=== PATIENT | male | born 1995 ===

== ENCOUNTER 2017-06-03 23:18 | Emergency (ER) | payer SELFPAY ==
[2017-06-04 00:09] VITALS: BMI 19.3
[2017-06-04 00:19] VITALS: BP 121/86; PULSE 71; RESP 16; TEMP 98.6; O2SAT 99
--- NOTE | 2017-06-04 01:05 | ED PDOC ---
Arrival/HPI - General Chief Complaint: ENT Problem Time Seen by Provider: 06/04/17 00:50 Historian: Patient - History of Present Illness Narrative History of Present Illness (Text): 06/04/17 00:45 21 y/o male, no significant pmh, nkda, c/o lt ear pain x 3 days with no fall or trauma. Aching pain, aggravated by pulling the left ear, no change in hearing, no fever or chills, no chest pain or shortness of breath, no headache, no palpitation, no other medical or psychological complaints. Past Medical History - Provider Review Nursing Documentation Reviewed: Yes - Psychiatric Hx Substance Use: No - Anesthesia Hx Anesthesia: No Family/Social History - Physician Review Nursing Documentation Reviewed: Yes Family/Social History: Unknown Family HX Smoking Status: Never Smoked Hx Alcohol Use: No Hx Substance Use: No Allergies/Home Meds Allergies/Adverse Reactions: Allergies No Known Allergies Allergy (Verified 06/04/17 00:09) Review of Systems - Review of Systems Constitutional: absent: Fatigue, Fevers Eyes: absent: Vision Changes ENT: Other (lt. ear pain). absent: Hearing Changes Respiratory: absent: SOB, Cough Cardiovascular: absent: Chest Pain, Palpitations Gastrointestinal: absent: Abdominal Pain, Nausea, Vomiting Musculoskeletal: absent: Arthralgias, Back Pain, Myalgias Skin: absent: Rash, Pruritis, Skin Lesions Physical Exam Vital Signs Reviewed: Yes Vital Signs Temp Pulse Resp BP Pulse Ox 06/04/17 00:18 98.6 F 71 16 121/86 99 Temperature: Afebrile Blood Pressure: Normal Pulse: Regular Respiratory Rate: Normal Appearance: Positive for: Well-Appearing, Non-Toxic Pain Distress: Moderate Mental Status: Positive for: Alert and Oriented X 3 - Systems Exam Head: Present: Atraumatic, Normocephalic Pupils: Present: PERRL Extroacular Muscles: Present: EOMI Conjunctiva: Present: Normal Ears: Present: Other (Ears: bilateral TMs ernestine color and intact, lt. auditory canal erythematous, rt. auditory canal non-erythematous, no mastoid tenderness. ) Mouth: Present: Moist Mucous Membranes Neck: Present: Normal Range of Motion Respiratory/Chest: Present: Clear to Auscultation, Good Air Exchange. No: Respiratory Distress, Accessory Muscle Use Cardiovascular: Present: Regular Rate and Rhythm, Normal S1, S2. No: Murmurs Abdomen: Present: Normal Bowel Sounds. No: Tenderness, Distention, Peritoneal Signs Back: Present: Normal Inspection Upper Extremity: Present: Normal Inspection. No: Cyanosis, Edema Lower Extremity: Present: Normal Inspection. No: Edema Neurological: Present: GCS=15, CN II-XII Intact, Speech Normal Skin: Present: Warm, Dry, Normal Color. No: Rashes Psychiatric: Present: Alert, Oriented x 3, Normal Insight, Normal Concentration Medical Decision Making ED Course and Treatment: 06/04/17 01:04 -toradol IM -Discharge home with cortisporin otic, motrin, keep the left ear dry and clean, avoid using earphone or headphone for 7 days, follow up with your own pmd and ENT within 2 days, return to the ER for any new or worsening signs or symptoms. 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 Disposition/Present on Arrival - Present on Arrival Any Indicators Present on Arrival: No History of DVT/PE: No History of Uncontrolled Diabetes: No Urinary Catheter: No History of Decub. Ulcer: No History Surgical Site Infection Following: None - Disposition Have Diagnosis and Disposition been Completed?: Yes Diagnosis: Otitis externa Disposition: HOME/ ROUTINE Disposition Time: 01:05 Patient Plan: Discharge Condition: GOOD Additional Instructions: -Discharge home with cortisporin otic, motrin, keep the left ear dry and clean, avoid using earphone or headphone for 7 days, follow up with your own pmd and ENT within 2 days, return to the ER for any new or worsening signs or symptoms. Prescriptions: Ibuprofen [Motrin Tab] 800 mg PO TID PRN #21 tab PRN Reason: Other Neomycin/Polymyxin/Hydrocortis [Cortisporin Otic Susp] 4 drop OT TID #1 bottle Referrals: Yovani Lyons DO [Staff Provider] - Follow up with primary Forms: WORK NOTE
== END 2017-06-04 01:28 | disposition home or self-care (01) ==
LOC: ED 23:18
DX: H60.92 Unspecified otitis externa, left ear (principal)
CPT/HCPCS: 96372; 99283; J1885

== ENCOUNTER 2017-08-14 16:16 | Observation (INO) | payer SELFPAY ==
--- NOTE | 2017-08-14 16:19 | ED PDOC ---
"Arrival/HPI <Shahram Kapadia - Last Filed: 08/14/17 20:17> - General Historian: Patient <Luis Cordero - Last Filed: 08/14/17 20:56> - General Time Seen by Provider: 08/14/17 16:18 - History of Present Illness Narrative History of Present Illness (Text): 08/14/17 16:19 21 y/o male, pmh including otitis externa, nkda, c/o abdominal and flank pain x 3 days. Sharp pain, located on the bilateral flank regions, radiating to the anterior abdominal pain, admits nausea and mild vomiting, no rash, no diarrhea, no fever or chills, no coughing, no headache or night sweat, no chest pain or shortness of breath, no other medical or psychological complaints. (Luis Cordero) Past Medical History - Provider Review Nursing Documentation Reviewed: Yes - Psychiatric Hx Substance Use: No - Anesthesia Hx Anesthesia: No <Luis Cordero - Last Filed: 08/14/17 20:56> Family/Social History - Physician Review Nursing Documentation Reviewed: Yes Family/Social History: Unknown Family HX Smoking Status: Never Smoked Hx Alcohol Use: No Hx Substance Use: No <Luis Cordero - Last Filed: 08/14/17 20:56> Allergies/Home Meds <Shahram Kapadia - Last Filed: 08/14/17 20:17> <Luis Cordero - Last Filed: 08/14/17 20:56> Allergies/Adverse Reactions: Allergies No Known Allergies Allergy (Verified 08/14/17 16:42) Home Medications: Home Meds Medication Instructions Recorded Confirmed No Known Home Med 08/14/17 08/14/17 Review of Systems - Review of Systems Constitutional: absent: Fatigue, Fevers Eyes: absent: Vision Changes ENT: absent: Hearing Changes Respiratory: absent: SOB, Cough Cardiovascular: absent: Syncope Gastrointestinal: Abdominal Pain, Nausea, Vomiting Musculoskeletal: Back Pain. absent: Arthralgias, Neck Pain Skin: absent: Rash, Pruritis Neurological: absent: Headache, Dizziness <Luis Cordero - Last Filed: 08/14/17 20:56> Physical Exam Vital Signs Reviewed: Yes Temperature: Afebrile Blood Pressure: Normal Pulse: Regular Respiratory Rate: Normal Appearance: Positive for: Well-Appearing, Non-Toxic, Comfortable Pain Distress: Moderate Mental Status: Positive for: Alert and Oriented X 3 - Systems Exam Head: Present: Atraumatic, Normocephalic Pupils: Present: PERRL Extroacular Muscles: Present: EOMI Conjunctiva: Present: Normal Ears: Present: NORMAL TM, Normal Canal. No: Erythema Mouth: Present: Moist Mucous Membranes Neck: Present: Normal Range of Motion Respiratory/Chest: Present: Clear to Auscultation, Good Air Exchange. No: Respiratory Distress, Accessory Muscle Use Cardiovascular: Present: Regular Rate and Rhythm, Normal S1, S2. No: Murmurs Abdomen: Present: Tenderness (mild RLQ and generalized.), Normal Bowel Sounds. No: Distention, Peritoneal Signs, Rebound, Guarding Back: Present: Normal Inspection, CVA Tenderness (bilateral). No: Midline Tenderness (thoracic to lumbarsacral), Paraspinal Tenderness (thoracic to lumbarsacral), Pain with Leg Raise Upper Extremity: Present: Normal Inspection. No: Cyanosis, Edema Lower Extremity: Present: Normal Inspection. No: Edema Neurological: Present: GCS=15, Speech Normal, Motor Func Grossly Intact, Gait Normal, Memory Normal Skin: Present: Warm, Dry, Normal Color. No: Rashes Psychiatric: Present: Alert, Oriented x 3, Normal Insight, Normal Concentration <Luis Cordero - Last Filed: 08/14/17 20:56> Vital Signs Temp Pulse Resp BP Pulse Ox 08/14/17 20:49 71 18 120/79 100 08/14/17 19:00 75 18 118/75 99 08/14/17 17:16 99.2 F 08/14/17 16:30 99.7 F H 78 20 115/71 98 Medical Decision Making <Shahram Kapadia - Last Filed: 08/14/17 20:17> - Lab Interpretations I have reviewed the lab results: Yes Interpretation: No clinic. lab abnormalty - RAD Interpretation Cellular Phone Repairer: Radiologist <Luis Cordero - Last Filed: 08/14/17 20:56> ED Course and Treatment: 08/14/17 16:51 -labs/ua -CT abdomen and pelvis with IV contrast -IVF/toradol/zofran -observe and reassess 08/14/17 20:03 -Labs are non-significant -UA show no UTI with microscopic with no hematuria -CT Abdomen show: 1. Mild hepatomegaly. 2. Mild nonspecific right perinephric stranding is visualized. 3. The appendix is gas-filled and borderline distended measuring 0.7 cm in diameter. There is no acute periappendiceal stranding. Clinical correlation is recommended. 4. There is slight anterior wedging of the T10-L1 vertebral bodies, suggestive of compression deformities. The acuity of these findings is indeterminate. Clinical correlation is recommended. 5. Incidental/non-acute findings are described above. -Hospitalist/General surgeon paged. -Will admit the patient over night for observation for possible appendicitis since the CT reading is inconclusive. 08/14/17 20:17 -I spoke to the certified medical technician assistant DR. Cantrell and the night hospitalist Dr. Nghia Parham, discussed about the case and they agreed to continue the care for the patient. -I spoke to general surgeon, Dr. Hand and certified ophthalmic surgical assistant Dr. Phoenix Mcclain, discussed about the case and she will consult. -I spoke to Dr. Kapadia and discussed about the case, agreed on the treatment and admission for observation plan with surgical consult. (Luis Cordero) - Lab Interpretations Lab Results: 08/14/17 17:05 08/14/17 17:05 Lab Results 08/14/17 17:05: WBC 8.1, RBC 4.87, Hgb 14.8, Hct 44.0, MCV 90.3, MCH 30.4, MCHC 33.6, RDW 13.0, Plt Count 169, MPV 11.1 H, Gran % 57.9, Lymph % (Auto) 28.0, [place] % (Auto) 10.6 H, Eos % (Auto) 3.1, Baso % (Auto) 0.4, Gran # 4.70, Lymph # 2.3, [place] # 0.9 H, Eos # 0.3, Baso # 0.03 08/14/17 17:05: Sodium 143, Potassium 3.9, Chloride 103, Carbon Dioxide 26, Anion Gap 18, BUN 11, Creatinine 1.0, Est GFR ( Amer) > 60, Est GFR (Non- Af Amer) > 60, Random Glucose 91, Calcium 9.5, Total Bilirubin 0.7, AST 53, ALT 63 H, Alkaline Phosphatase 94, Total Protein 7.9, Albumin 4.5, Globulin 3.4, Albumin/Globulin Ratio 1.3, Lipase 66 08/14/17 17:00: Urine Color Straw, Urine Appearance Clear, Urine pH 6.0, Ur Specific [place] 1.010, Urine Protein Negative, Urine Glucose (UA) Negative, Urine Ketones Negative, Urine Blood Trace-lysed H, Urine Nitrate Negative, Urine Bilirubin Negative, Urine Urobilinogen 0.2, Ur Leukocyte Esterase Negative , Urine RBC 0 - 2, Urine WBC 1 - 3, Ur Epithelial Cells 3 - 4, Urine Bacteria Few - RAD Interpretation Radiology Orders: 08/14/17 16:47 ABD & PELVIS IV CONTRAST ONLY [CT] Stat 08/14/17 16:56 CHEST ONE VIEW [RAD] Stat 08/14/17 16:47 ABD & PELVIS IV CONTRAST ONLY [CT] Stat 08/14/17 16:56 CHEST ONE VIEW [RAD] Stat FINDINGS: Lower thorax: No acute findings. ABDOMEN: Liver: The liver measures 18.5 cm in the craniocaudad dimension, consistent with mild hepatomegaly. Gallbladder and bile ducts: No calcified stones. No ductal dilation. Pancreas: Normal contour, without acute peripancreatic stranding. Spleen: No splenomegaly. Adrenals: No mass. Kidneys and ureters: Mild nonspecific right perinephric stranding is visualized. No hydronephrosis bilaterally. RUTHIE WONG | Final Radiology Report CONFIDENTIALITY STATEMENT This report is intended only for use by the referring physician, and only in accordance with law. If you received this in error, call [phone]. Page 2 of 2 Stomach and bowel: There is moderate fecal material within the colon and rectum. Appendix: The appendix is gas-filled and borderline distended measuring 0.7 cm in diameter. There is no acute periappendiceal stranding. PELVIS: Bladder: No mass. Reproductive: Unremarkable as visualized. ABDOMEN and PELVIS: Intraperitoneal space: No free air. Bones/joints: There is slight anterior wedging of the T10-L1 vertebral bodies, suggestive of compression deformities. The acuity of these findings is indeterminate. Vasculature: No abdominal aortic aneurysm. Lymph nodes: No enlarged lymph nodes. IMPRESSION: 1. Mild hepatomegaly. 2. Mild nonspecific right perinephric stranding is visualized. 3. The appendix is gas-filled and borderline distended measuring 0.7 cm in diameter. There is no acute periappendiceal stranding. Clinical correlation is recommended. 4. There is slight anterior wedging of the T10-L1 vertebral bodies, suggestive of compression deformities. The acuity of these findings is indeterminate. Clinical correlation is recommended. 5. Incidental/non-acute findings are described above. Thank you for allowing us to participate in the care of your patient. Dictated and Authenticated by: Roger Barrett MD 08/14/2017 7:54 PM Eastern Time ([place] & [place]) (Luis Cordero) - Medication Orders Current Medication Orders: Sodium Chloride (Sodium Chloride 0.9%) 1,000 mls @ 100 mls/hr IV .Q10H BONI Pantoprazole Sodium (Protonix Inj) 40 mg IVP DAILY BONI Discontinued Medications Sodium Chloride (Sodium Chloride 0.9%) 1,000 mls @ 999 mls/hr IV .Q1H1M STA Stop: 08/14/17 17:47 Last Admin: 08/14/17 17:32 Dose: 999 mls/hr eMAR Start Stop Document 08/14/17 17:32 SF (Rec: 08/14/17 17:32 SF [email or web address]) Intravenous Solution Start Date 08/14/17 Start Time 17:32 End Date 08/14/17 End time 18:33 Total Infusion Time 61 Piperacillin Sod/Tazobactam Sod (Zosyn 3.375 In Ns 100ml) 100 mls @ 200 mls/hr IVPB STAT STA PRN Reason: Protocol Stop: 08/14/17 20:38 Ketorolac Tromethamine (Toradol) 30 mg IVP STAT STA Stop: 08/14/17 16:49 Last Admin: 08/14/17 17:32 Dose: 30 mg MAR Pain Assessment Document 08/14/17 17:32 SF (Rec: 08/14/17 17:32 SF [email or web address]) Pain Reassessment Is this a pain reassessment? Yes Sleep Is patient sleeping during reassessment? No Pain Scale Used Pain Scale Used Numeric Location Pain Location Body Site Abdomen IVP Administration Document 08/14/17 17:32 SF (Rec: 08/14/17 17:32 SF [email or web address]) Charges for Administration # of IVP Administrations 1 Ondansetron HCl (Zofran Inj) 4 mg IVP STAT STA Stop: 08/14/17 16:49 Last Admin: 08/14/17 17:32 Dose: 4 mg IVP Administration Document 08/14/17 17:32 SF (Rec: 08/14/17 17:32 SF [id number] Charges for Administration # of IVP Administrations 1 - PA / ONCOLOGIST / Resident Statement TROY has reviewed & agrees with the documentation as recorded. TROY has examined the patient and agrees with the treatment plan. <Shahram Kapadia - Last Filed: 08/14/17 20:17> - PA / ONCOLOGIST / Resident Statement TROY has reviewed & agrees with the documentation as recorded. <Luis Cordero - Last Filed: 08/14/17 20:56> Disposition/Present on Arrival <Shahram Kapadia - Last Filed: 08/14/17 20:17> - Present on Arrival Any Indicators Present on Arrival: No History of DVT/PE: No History of Uncontrolled Diabetes: No Urinary Catheter: No History of Decub. Ulcer: No History Surgical Site Infection Following: None - Disposition Have Diagnosis and Disposition been Completed?: Yes Disposition Time: 20:05 Patient Plan: Observation <Luis Cordero - Last Filed: 08/14/17 20:56> - Disposition Diagnosis: Abdominal pain in male Disposition: HOSPITALIZED Patient Problems: Current Active Problems Problem Status Onset Abdominal pain in male Acute Condition: STABLE"
[2017-08-14] MEDS ORDERED: Sodium Chloride 0.9% 1,000 ML IV STA (16:47)
[2017-08-14] MEDS ORDERED: Iohexol 350 MG/100 ML VIAL ONE (16:52)
[2017-08-14 17:08] LABS: URINE BILIRUBIN NEGATIVE (NEGATIVE); URINE BLOOD TRACE-LYSED (NEGATIVE); URINE GLUCOSE (UA) NEGATIVE (NEGATIVE); URINE KETONE NEGATIVE (NEGATIVE); URINE LEUKOCYTE ESTERASE NEGATIVE Leu/uL (NEGATIVE); URINE PROTEIN NEGATIVE mg/dL (<30 mg/dL); URINE UROBILINOGEN 0.2 E.U./dL (<1 E.U./dL)
[2017-08-14 17:10] LABS: URINE APPEARANCE CLEAR (CLEAR); URINE COLOR STRAW (YELLOW)
[2017-08-14 17:23] LABS: URINE BACTERIA FEW (NEG); URINE RBC 0 - 2 /hpf (0-2)
[2017-08-14 17:47] LABS: BASO # 0.03 K/mm3 (0.0-2.0); BASO % 0.4 % (0.0-3.0); EOS # 0.3 (0.0-0.7); EOS % 3.1 % (1.5-5.0); GRAN # 4.7 (1.4-6.5); GRAN % 57.9 % (50.0-68.0); LYMPH # 2.3 (1.2-3.4); MEAN CELL VOLUME 90.3 fl (80.0-105.0); MEAN CORPUSCULAR HEMOGLOBIN 30.4 pg (25.0-35.0); MEAN CORPUSCULAR HGB CONC 33.6 g/dl (31.0-37.0); MEAN PLATELET VOLUME 11.1 fl (7.0-11.0); MONO # 0.9 (0.1-0.6); MONO % 10.6 % (1.0-6.0); WHITE BLOOD COUNT 8.1 10^3/ul (4.5-11.0)
[2017-08-14 18:02] LABS: ALB/GLOB RATIO 1.3 (1.1-1.8); ALKALINE PHOSPHATASE 94 U/L (38-126); ALT/SGPT 63 U/L (7-56); AST/SGOT 53 U/L (17-59); BILIRUBIN,TOTAL 0.7 mg/dL (0.2-1.3); BLOOD UREA NITROGEN 11 mg/dL (7-21); CALCIUM 9.5 mg/dL (8.4-10.5); CARBON DIOXIDE 26 mmol/L (21-33); CHLORIDE 103 mmol/L (98-107); GFR AFRICAN-AMERICAN > 60; GLUCOSE,RANDOM 91 mg/dL (70-110); LIPASE 66 U/L (23-300); POTASSIUM 3.9 mmol/L (3.6-5.0); SODIUM 143 mmol/L (132-148); TOTAL PROTEIN 7.9 g/dL (5.8-8.3)
--- NOTE | 2017-08-14 19:54 | CT ---
EXAM: CT Abdomen and Pelvis With Intravenous Contrast EXAM DATE/TIME: 08/14/2017 4:47 PM CLINICAL HISTORY: The patient age is 21 years old and is male; Pain; Abdominal pain; Flank; Right; Additional info: Abdominal and flank pain Facility exam id and description: Ct abdpelciv abd pelvis iv contrast only TECHNIQUE: Axial computed tomography images of the abdomen and pelvis with intravenous contrast. All CT scans at this facility use one or more dose reduction techniques, viz.: automated exposure control; ma/kV adjustment per patient size (including targeted exams where dose is matched to indication; i.e. head); or iterative reconstruction technique. Coronal and sagittal reformatted images were created and reviewed. CONTRAST: 100 mL of OMNI 350 administered intravenously. COMPARISON: No relevant prior studies available. FINDINGS: Lower thorax: No acute findings. ABDOMEN: Liver: The liver measures 18.5 cm in the craniocaudad dimension, consistent with mild hepatomegaly. Gallbladder and bile ducts: No calcified stones. No ductal dilation. Pancreas: Normal contour, without acute peripancreatic stranding. Spleen: No splenomegaly. Adrenals: No mass. Kidneys and ureters: Mild nonspecific right perinephric stranding is visualized. No hydronephrosis bilaterally. Stomach and bowel: There is moderate fecal material within the colon and rectum. Appendix: The appendix is gas-filled and borderline distended measuring 0.7 cm in diameter. There is no acute periappendiceal stranding. PELVIS: Bladder: No mass. Reproductive: Unremarkable as visualized. ABDOMEN and PELVIS: Intraperitoneal space: No free air. Bones/joints: There is slight anterior wedging of the T10-L1 vertebral bodies, suggestive of compression deformities. The acuity of these findings is indeterminate. Vasculature: No abdominal aortic aneurysm. Lymph nodes: No enlarged lymph nodes. IMPRESSION: 1. Mild hepatomegaly. 2. Mild nonspecific right perinephric stranding is visualized. 3. The appendix is gas-filled and borderline distended measuring 0.7 cm in diameter. There is no acute periappendiceal stranding. Clinical correlation is recommended. 4. There is slight anterior wedging of the T10-L1 vertebral bodies, suggestive of compression deformities. The acuity of these findings is indeterminate. Clinical correlation is recommended. 5. Incidental/non-acute findings are described above.
[2017-08-14] MEDS ORDERED: Piperacillin/Tazobact 3.375 gm 100 ML IVPB STA (20:09)
[2017-08-14 20:49] VITALS: RESP 18
[2017-08-14] MEDS ORDERED: Sodium Chloride 0.9% 1,000 ML IV SCH (21:00)
--- NOTE | 2017-08-14 21:11 | CP.PCM.HP ---
History of Present Illness - History of Present Illness History of Present Illness: Chief Complaint Flank pain radiating to B/L lower quadrants HPI Patient is a 21 year old [place] speaking male with history of otitis externa of right ear who presents with complaints of a 3 day history of a cold and left ear pain. Patient states yesterday he took one dose of ibuprofen and consumed a large amount of chocolate, chicken and rice last night. He woke up this morning with flank pain that radiated to lower right quadrants bilaterally. Patient rates the pain initially this morning a 7/10 but currently a 2/10. He has not eaten today but admits to currently having an appetite and denies vomiting, diarrhea, fever, chills, dysuria, hematuria, increased frequency, urgency. Present on Admission - Present on Admission Any Indicators Present on Admission: No Review of Systems - Constitutional Constitutional: absent: Chills, Fever, Headache - EENT Eyes: absent: Blurred Vision, Change in Vision, Other Visual Disturbances Ears: absent: Decreased Hearing, Ear Discharge, Tinnitus - Cardiovascular Cardiovascular: absent: Chest Pain, Diaphoresis, Dyspnea - Respiratory Respiratory: absent: Cough, Dyspnea, Wheezing - Gastrointestinal Gastrointestinal: Abdominal Pain, Nausea. absent: Bloating, Change in Bowel Habits, Change in Stool Character, Constipation, Diarrhea, Hematochezia, Melena , Vomiting - Genitourinary Genitourinary: Flank Pain. absent: Change in Urinary Stream, Dysuria, Hematuria , Urinary Frequency, Urinary Urgency - Musculoskeletal Musculoskeletal: absent: Numbness, Tingling - Neurological Neurological: absent: Dizziness, Numbness, Headaches - Psychiatric Psychiatric: absent: Abnormal Sleep Pattern, Auditory Hallucinations Past Patient History - Infectious Disease Hx of Infectious Diseases: None - Past Social History Smoking Status: Never Smoked - PSYCHIATRIC Hx Substance Use: No - SURGICAL HISTORY Hx Surgeries: No - ANESTHESIA Hx Anesthesia: No Meds Allergies/Adverse Reactions: Allergies Allergy/AdvReac Type Severity Reaction Status Date / Time No Known Allergies Allergy Verified 08/14/17 16:42 Physical Exam - Constitutional Appears: Well - Head Exam Head Exam: ATRAUMATIC, NORMAL INSPECTION, NORMOCEPHALIC - Eye Exam Eye Exam: EOMI, Normal appearance - ENT Exam ENT Exam: Mucous Membranes Moist, Normal Exam - Expanded ENT Exam Expanded Ear exam: absent: Auricular Hematoma, Auricular Trauma, External Canal Tenderness (no bulging, discharge, erythema in left ear) - Respiratory Exam Respiratory Exam: Clear to Auscultation Bilateral, NORMAL BREATHING PATTERN - Cardiovascular Exam Cardiovascular Exam: REGULAR RHYTHM, +S1, +S2 - GI/Abdominal Exam GI & Abdominal Exam: Normal Bowel Sounds, Soft. absent: Diminished Bowel Sounds , Distended, Guarding, Rigid - Back Exam Back exam: CVA tenderness (L), CVA tenderness (R), FULL ROM. absent: rash noted , vertebral tenderness - Neurological Exam Neurological exam: Alert, CN II-XII Intact, Oriented x3 - Psychiatric Exam Psychiatric exam: Normal Affect, Normal Mood - Skin Skin Exam: Normal Color, Warm Results - Vital Signs Recent Vital Signs: Last Vital Signs Temp 99.2 F 08/14/17 17:16 Pulse 71 08/14/17 20:49 Resp 18 08/14/17 20:49 BP 120/79 08/14/17 20:49 Pulse Ox 100 08/14/17 20:49 - Labs Result Diagrams: 08/14/17 17:05 08/14/17 17:05 Assessment & Plan - Assessment and Plan (Free Text) Assessment: Assessment 21 year old male presenting with flank and abdominal pain Plan: Plan - Labs normal - Protonix - IVF - Surgery consulted; patient may eat and will observe over night. Patient will be d/c tomorrow
--- NOTE | 2017-08-14 21:36 | CP.PCM.CON ---
History of Present Illness - History of Present Illness History of Present Illness: Surgery 21 M w no sig PMH came with flank pain that started yesterday. Pain is located b /l flank area that started suddenly. Denies F/C/N/V/D/Cp/SOB/anorexia/hematuria/ hematochezia/hematemesis. Pt is visiting from [place] and had flights tomorrow. Denies sick contact. Surgery is consulted to evaluate for possible appendicitis. CT of abd shows dilated 7mm air filled appendix. PMH: none PHS: none SS: visiting from [place]. Review of Systems - Review of Systems Review of Systems: See HPI Past Patient History - Infectious Disease Hx of Infectious Diseases: None - Past Social History Smoking Status: Never Smoked - PSYCHIATRIC Hx Substance Use: No - SURGICAL HISTORY Hx Surgeries: No - ANESTHESIA Hx Anesthesia: No Meds Allergies/Adverse Reactions: Allergies Allergy/AdvReac Type Severity Reaction Status Date / Time No Known Allergies Allergy Verified 08/14/17 16:42 - Medications Medications: Current Medications Sodium Chloride (Sodium Chloride 0.9%) 1,000 mls @ 100 mls/hr IV .Q10H [facility] Last Admin: 08/14/17 21:05 Dose: 100 mls/hr Pantoprazole Sodium (Protonix Inj) 40 mg IVP DAILY [facility] Physical Exam - Constitutional Appears: No Acute Distress - Head Exam Head Exam: ATRAUMATIC, NORMAL INSPECTION, NORMOCEPHALIC - Eye Exam Eye Exam: EOMI, Normal appearance, PERRL Pupil Exam: NORMAL ACCOMODATION, PERRL - ENT Exam ENT Exam: Mucous Membranes Moist, Normal Exam - Neck Exam Neck exam: Positive for: Normal Inspection - Respiratory Exam Respiratory Exam: Clear to Auscultation Bilateral, NORMAL BREATHING PATTERN - Cardiovascular Exam Cardiovascular Exam: REGULAR RHYTHM - GI/Abdominal Exam GI & Abdominal Exam: Soft. absent: Distended, Firm, Guarding, Hernia, Rebound, Rigid, Tenderness - Extremities Exam Extremities exam: Positive for: normal inspection - Back Exam Back exam: NORMAL INSPECTION - Neurological Exam Neurological exam: Alert, CN II-XII Intact, Normal Gait, Oriented x3, Reflexes Normal - Psychiatric Exam Psychiatric exam: Normal Affect, Normal Mood - Skin Skin Exam: Dry, Intact, Normal Color, Warm Results - Vital Signs Recent Vital Signs: Last Vital Signs Temp 99.2 F 08/14/17 17:16 Pulse 71 08/14/17 20:49 Resp 18 08/14/17 20:49 BP 120/79 08/14/17 20:49 Pulse Ox 100 08/14/17 20:49 - Labs Result Diagrams: 08/14/17 17:05 08/14/17 17:05 Assessment & Plan - Assessment and Plan (Free Text) Assessment: 21 M appendicitis unlikely clinically , pt likely passed kidney stone: Flank pain resolved. -No leukocytosis -Afebrile -No RLQ pain -No N/V/D/anorexia -CT abd: 7mm air filled appendix. No periappendiceal fat stranding. -UA: lysed RBC -NPO -IVF -ABX -Monitor overnight -Serial abd exam -Nausea control -Hold pain meds to better evaluate in AM Will PAZ Hand
[2017-08-15 00:03] VITALS: BMI 22.4
[2017-08-15] MEDS ORDERED: metroNIDAZOLE IV 500 mg/100 ml 500 MG/100 ML BAG IVPB SCH (06:00)
[2017-08-15 07:12] LABS: BASO # 0.02 K/mm3 (0.0-2.0); BASO % 0.3 % (0.0-3.0); EOS # 0.3 (0.0-0.7); EOS % 3.1 % (1.5-5.0); GRAN # 4.24 (1.4-6.5); GRAN % 53.1 % (50.0-68.0); HEMATOCRIT 42.7 % (42.0-52.0); LYMPH # 2.8 (1.2-3.4); MEAN CELL VOLUME 89.5 fl (80.0-105.0); MEAN CORPUSCULAR HGB CONC 33.5 g/dl (31.0-37.0); MEAN PLATELET VOLUME 10.8 fl (7.0-11.0); MONO # 0.7 (0.1-0.6); MONO % 8.5 % (1.0-6.0); RED CELL DISTRIBUTION WIDTH 12.9 % (11.5-14.5)
[2017-08-15 07:28] VITALS: BP 102/57; PULSE 72; TEMP 98.2; O2SAT 98
--- NOTE | 2017-08-15 08:09 | RAD ---
PROCEDURE: CHEST RADIOGRAPH, 1 VIEW HISTORY: medical clearance COMPARISON: None available. FINDINGS: LUNGS: Clear. PLEURA: No pneumothorax or pleural fluid seen. CARDIOVASCULAR: Normal. OSSEOUS STRUCTURES: No significant abnormalities. VISUALIZED UPPER ABDOMEN: Normal. OTHER FINDINGS: None. IMPRESSION: No acute cardiopulmonary disease appreciated.
--- NOTE | 2017-08-15 09:55 | CP.PCM.PN ---
Subjective - Date & Time of Evaluation Date of Evaluation: 08/15/17 Time of Evaluation: 09:52 - Subjective Subjective: PGY1 Note for Dr. Hand HPI: Patient seen and examined at bedside. Doing well with no complaints at this time. Jaci diet. Denies N/V. No fever or diarrhea. Abdominal pain has resolved Objective - Vital Signs/Intake and Output Vital Signs (last 24 hours): Temp Pulse Resp BP Pulse Ox 98.2 F 72 18 102/57 L 98 08/15/17 07:28 08/15/17 07:28 08/15/17 07:28 08/15/17 07:28 08/15/17 07:28 - Medications Medications: Current Medications Acetaminophen (Tylenol 325mg Tab) 650 mg PO Q4 PRN PRN Reason: Fever >100.4 F Sodium Chloride (Sodium Chloride 0.9%) 1,000 mls @ 100 mls/hr IV .Q10H [facility] Last Admin: 08/14/17 21:05 Dose: 100 mls/hr Metronidazole (Flagyl) 500 mg in 100 mls @ 100 mls/hr IVPB Q8 [facility] PRN Reason: Protocol Last Admin: 08/15/17 05:15 Dose: 100 mls/hr Ondansetron HCl (Zofran Inj) 4 mg IVP Q4 PRN PRN Reason: Nausea/Vomiting Pantoprazole Sodium (Protonix Inj) 40 mg IVP DAILY [facility] - Labs Labs: 08/15/17 07:01 - Constitutional Appears: Well, Non-toxic, No Acute Distress - Head Exam Head Exam: ATRAUMATIC, NORMAL INSPECTION, NORMOCEPHALIC - Eye Exam Eye Exam: EOMI - ENT Exam ENT Exam: Mucous Membranes Moist - Respiratory Exam Respiratory Exam: Clear to Ausculation Bilateral, NORMAL BREATHING PATTERN - Cardiovascular Exam Cardiovascular Exam: REGULAR RHYTHM - GI/Abdominal Exam GI & Abdominal Exam: Soft, Normal Bowel Sounds. absent: Distended, Tenderness - Extremities Exam Extremities Exam: absent: Joint Swelling, Tenderness - Back Exam Back Exam: absent: CVA tenderness (L), CVA tenderness (R) - Neurological Exam Neurological Exam: Alert, Awake, Oriented x3 - Psychiatric Exam Psychiatric exam: Normal Affect, Normal Mood - Skin Skin Exam: Dry, Intact, Normal Color, Warm Assessment and Plan - Assessment and Plan (Free Text) Assessment: 21 y/o Male with hx of abdominal pain Plan: * Patients abdominal pain has resolved. * No surgical intervention needed at this time * Patient is clear for discharge from a surgical standpoint.
--- NOTE | 2017-08-15 13:35 | CP.PCM.DIS ---
<Barry Vazquez - Last Filed: 08/15/17 13:28> Provider - Provider Date of Admission: 08/14/17 20:15 Attending physician: René Gee MD Time Spent in preparation of Discharge (in minutes): 30 Diagnosis - Discharge Diagnosis (1) Abdominal pain in male Status: Acute Hospital Course - Lab Results Lab Results: Most Recent Lab Values WBC 8.0 10^3/ul (4.5-11.0) 08/15/17 07:01 RBC 4.77 10^6/uL (3.5-6.1) 08/15/17 07:01 Hgb 14.3 g/dL (14.0-18.0) 08/15/17 07:01 Hct 42.7 % (42.0-52.0) 08/15/17 07:01 MCV 89.5 fl (80.0-105.0) 08/15/17 07:01 MCH 30.0 pg (25.0-35.0) 08/15/17 07:01 MCHC 33.5 g/dl (31.0-37.0) 08/15/17 07:01 RDW 12.9 % (11.5-14.5) 08/15/17 07:01 Plt Count 167 10^3/uL (120.0-450.0) 08/15/17 07:01 MPV 10.8 fl (7.0-11.0) 08/15/17 07:01 Gran % 53.1 % (50.0-68.0) 08/15/17 07:01 Lymph % (Auto) 35.0 % (22.0-35.0) 08/15/17 07:01 [place] % (Auto) 8.5 % (1.0-6.0) H 08/15/17 07:01 Eos % (Auto) 3.1 % (1.5-5.0) 08/15/17 07:01 Baso % (Auto) 0.3 % (0.0-3.0) 08/15/17 07:01 Gran # 4.24 (1.4-6.5) 08/15/17 07:01 Lymph # 2.8 (1.2-3.4) 08/15/17 07:01 Loving # 0.7 (0.1-0.6) H 08/15/17 07:01 Eos # 0.3 (0.0-0.7) 08/15/17 07:01 Baso # 0.02 K/mm3 (0.0-2.0) 08/15/17 07:01 Sodium 143 mmol/L (132-148) 08/14/17 17:05 Potassium 3.9 mmol/L (3.6-5.0) 08/14/17 17:05 Chloride 103 mmol/L (98-107) 08/14/17 17:05 Carbon Dioxide 26 mmol/L (21-33) 08/14/17 17:05 Anion Gap 18 (10-20) 08/14/17 17:05 BUN 11 mg/dL (7-21) 08/14/17 17:05 Creatinine 1.0 mg/dL (0.5-1.4) 08/14/17 17:05 Est GFR ( Amer) > 60 08/14/17 17:05 Est GFR (Non-Af Amer) > 60 08/14/17 17:05 Random Glucose 91 mg/dL (70-110) 08/14/17 17:05 Calcium 9.5 mg/dL (8.4-10.5) 08/14/17 17:05 Total Bilirubin 0.7 mg/dL (0.2-1.3) 08/14/17 17:05 AST 53 U/L (17-59) 08/14/17 17:05 ALT 63 U/L (7-56) H 08/14/17 17:05 Alkaline Phosphatase 94 U/L (38-126) 08/14/17 17:05 Total Protein 7.9 g/dL (5.8-8.3) 08/14/17 17:05 Albumin 4.5 g/dL (3.0-4.8) 08/14/17 17:05 Globulin 3.4 gm/dL 08/14/17 17:05 Albumin/Globulin Ratio 1.3 (1.1-1.8) 08/14/17 17:05 Lipase 66 U/L (23-300) 08/14/17 17:05 Urine Color Straw (YELLOW) 08/14/17 17:00 Urine Appearance Clear (CLEAR) 08/14/17 17:00 Urine pH 6.0 (4.7-8.0) 08/14/17 17:00 Ur Specific [place] 1.010 (1.005-1.035) 08/14/17 17:00 Urine Protein Negative mg/dL (<30 mg/dL) 08/14/17 17:00 Urine Glucose (UA) Negative mg/dL (NEGATIVE) 08/14/17 17: Urine Ketones Negative mg/dL (NEGATIVE) 08/14/17 17: Urine Blood Trace-lysed (NEGATIVE) H 08/14/17: Urine Nitrate Negative (NEGATIVE) 08/14/17 17: Urine Bilirubin Negative (NEGATIVE) 08/14/17: Urine Urobilinogen 0.2 E.U./dL (<1 E.U./dL) 08/14/17 17: Ur Leukocyte Esterase Negative Jose F/uL (NEGATIVE) 08/14/17 17:00 Urine RBC 0 - 2 /hpf (0-2) 08/14/17 17: Urine WBC 1 - 3 /hpf (0-6) 08/14/17 17: Ur Epithelial Cells 3 - 4 /hpf (0-5) 08/14/17 17: Urine Bacteria Few (NEG) 08/14/17 17: - Hospital Course Hospital Course: Patient is a 21 year old male with history of otitis externa of right ear who was admitted for evaluation and treatment of flank pain that radiated to lower right quadrants bilaterally. With the use of physical examinations, lab work, and imaging the patient was diagnosed with and treated for abdominal pain of unknown origin. During their hospital stay the patient was seen by general surgeyr, Dr. Hand, who as cleared the patient for discharge. During their hospital stay the patient underwent a CT of the abdomen which showed an appendix is gas-filled and borderline distended measuring 0.7 cm in diameter with no acute periappendiceal stranding. Patient was able to tolerate diet overnight and the abdominal pain resolved since admission. At this time the patient is medically stable for discharge. Patient understands and appreciates discharge plan. Patient instructed to follow up with primary care physician within three to five days from discharge in [place]. Furthermore, the patient is instructed to take antibiotics as prescribed and to return to emergency room for evaluation of intractable headache, fever, chills, dizziness, chest pain, shortness of breath, abdominal pain, nausea, vomiting, diarrhea, constipation, and urinary symptoms. This is a brief summary of the patients hospital course. Please see patient chart for full details. Discharge Exam - Head Exam Head Exam: ATRAUMATIC, NORMAL INSPECTION, NORMOCEPHALIC Discharge Plan - Discharge Medications Prescriptions: Ciprofloxacin HCl [Cipro] 500 mg PO BID #10 tablet Metronidazole [Flagyl] 500 mg PO Q8 #21 tablet - Follow Up Plan Condition: STABLE Disposition: HOME/ ROUTINE Instructions: Pneumococcal Vaccine for Adults (DC), Influenza Vaccine (DC), Regular Diet (DC), Acute Abdominal Pain (DC) Additional Instructions: Discharge patient to home today. Take prescriptions as directed. Report to the Emergency Room if your pain worsens in [place]. <René Gee - Last Filed: 08/15/17 17:09> Provider - Provider Date of Admission: 08/14/17 20:15 Attending physician: René Gee MD Hospital Course - Lab Results Lab Results: Most Recent Lab Values WBC 8.0 10^3/ul (4.5-11.0) 08/15/17 07:01 RBC 4.77 10^6/uL (3.5-6.1) 08/15/17 07:01 Hgb 14.3 g/dL (14.0-18.0) 08/15/17 07:01 Hct 42.7 % (42.0-52.0) 08/15/17 07:01 MCV 89.5 fl (80.0-105.0) 08/15/17 07:01 MCH 30.0 pg (25.0-35.0) 08/15/17 07:01 MCHC 33.5 g/dl (31.0-37.0) 08/15/17 07:01 RDW 12.9 % (11.5-14.5) 08/15/17 07:01 Plt Count 167 10^3/uL (120.0-450.0) 08/15/17 07:01 MPV 10.8 fl (7.0-11.0) 08/15/17 07:01 Gran % 53.1 % (50.0-68.0) 08/15/17 07:01 Lymph % (Auto) 35.0 % (22.0-35.0) 08/15/17 07:01 Loving % (Auto) 8.5 % (1.0-6.0) H 08/15/17 07:01 Eos % (Auto) 3.1 % (1.5-5.0) 08/15/17 07:01 Baso % (Auto) 0.3 % (0.0-3.0) 08/15/17 07:01 Gran # 4.24 (1.4-6.5) 08/15/17 07:01 Lymph # 2.8 (1.2-3.4) 08/15/17 07:01 Loving # 0.7 (0.1-0.6) H 08/15/17 07:01 Eos # 0.3 (0.0-0.7) 08/15/17 07:01 Baso # 0.02 K/mm3 (0.0-2.0) 08/15/17 07:01 Sodium 143 mmol/L (132-148) 08/14/17 17:05 Potassium 3.9 mmol/L (3.6-5.0) 08/14/17 17:05 Chloride 103 mmol/L (98-107) 08/14/17 17:05 Carbon Dioxide 26 mmol/L (21-33) 08/14/17 17:05 Anion Gap 18 (10-20) 08/14/17 17:05 BUN 11 mg/dL (7-21) 08/14/17 17:05 Creatinine 1.0 mg/dL (0.5-1.4) 08/14/17 17:05 Est GFR ( Amer) > 60 08/14/17 17:05 Est GFR (Non-Af Amer) > 60 08/14/17 17:05 Random Glucose 91 mg/dL (70-110) 08/14/17 17:05 Calcium 9.5 mg/dL (8.4-10.5) 08/14/17 17:05 Total Bilirubin 0.7 mg/dL (0.2-1.3) 08/14/17 17:05 AST 53 U/L (17-59) 08/14/17 17:05 ALT 63 U/L (7-56) H 08/14/17 17:05 Alkaline Phosphatase 94 U/L (38-126) 08/14/17 17:05 Total Protein 7.9 g/dL (5.8-8.3) 08/14/17 17:05 Albumin 4.5 g/dL (3.0-4.8) 08/14/17 17:05 Globulin 3.4 gm/dL 08/14/17 17:05 Albumin/Globulin Ratio 1.3 (1.1-1.8) 08/14/17 17:05 Lipase 66 U/L (23-300) 08/14/17 17:05 Urine Color Straw (YELLOW) 08/14/17 17:00 Urine Appearance Clear (CLEAR) 08/14/17 17:00 Urine pH 6.0 (4.7-8.0) 08/14/17 17:00 Ur Specific [place] 1.010 (1.005-1.035) 08/14/17 17:00 Urine Protein Negative mg/dL (<30 mg/dL) 08/14/17 17:00 Urine Glucose (UA) Negative mg/dL (NEGATIVE) 08/14/17 17:00 Urine Ketones Negative mg/dL (NEGATIVE) 08/14/17 17:00 Urine Blood Trace-lysed (NEGATIVE) H 08/14/17 17:00 Urine Nitrate Negative (NEGATIVE) 08/14/17 17:00 Urine Bilirubin Negative (NEGATIVE) 08/14/17 17:00 Urine Urobilinogen 0.2 E.U./dL (<1 E.U./dL) 08/14/17 17:00 Ur Leukocyte Esterase Negative Jose F/uL (NEGATIVE) 08/14/17 17:00 Urine RBC 0 - 2 /hpf (0-2) 08/14/17 17:00 Urine WBC 1 - 3 /hpf (0-6) 08/14/17 17:00 Ur Epithelial Cells 3 - 4 /hpf (0-5) 08/14/17 17:00 Urine Bacteria Few (NEG) 08/14/17 17:00 Attending/Attestation - Attestation I have personally seen and examined this patient.: Yes I have fully participated in the care of the patient.: Yes I have reviewed all pertinent clinical information, including history, physical exam and plan: Yes Notes (Text): 08/15/17 17:06 attending note; Patient seen and examined with resident. Patient is a 21-year-old male admitted with abdominal pain. CT scan showed mildly dilated appendix. Patient was afebrile and nontoxic. Tolerated regular diet.No abdominal pain. No nausea or vomiting. Seen by surgery and cleared for discharge. Discharge home with by mouth [facility] and [facility]. Patient is flying to [place] today. Advised to follow-up with surgery if needed. diagnosis; Abdominal pain 08/15/17 17:07
== END 2017-08-15 13:57 | disposition home or self-care (01) ==
LOC: ED 16:16 → ERH 20:15 → 5RNO 21:49
PROVIDERS: ADMIT Internal Medicine; ATTEND Internal Medicine
DX: R10.31 Right lower quadrant pain (principal); R10.32 Left lower quadrant pain
CPT/HCPCS: 36415; 71010; 74177; 80053; 81001; 83690; 85025; 96361; 96374; 96375; 99285; C9113; G0378; J1885; J2405; J2543; J7040; Q9967